=== PATIENT | female | born 1955 | race Caucasian/White ===

== ENCOUNTER 2018-07-01 08:03 | Inpatient (IN) ==
[2018-06-27 17:14] LABS: Appearance,Urine CLEAR; Bilirubin,Urine NEG (NEG); Color,Urine STRAW; Glucose,Urine (UA) NEGATIVE (NEG); Leukocyte Esterase,Urine NEG /uL (NEG); Protein,Urine NEG (NEG); Specific Gravity,Urine 1.011 (1.000-1.035); Urine Blood NEG mg/dL (<0.03)
[2018-06-27 18:24] LABS: Basophils # (Auto) 0 K/mcL (0.0-0.3); Basophils % (Auto) 0.5 % (0.0-2.0); Eosinophils # (Auto) 0.1 K/mcL (0.0-0.7); Eosinophils % (Auto) 1.4 % (0.0-7.0); Lymphocytes # (Auto) 1.7 K/mcL (1.5-4.8); Lymphocytes % (Auto) 24.6 % (15.5-49.0); Mean Cell Volume 92.4 fL (80.0-100.0); Mean Corpuscular HGB Conc 32.9 g/dL (31.0-36.0); Monocytes # (Auto) 0.5 K/mcL (0.1-0.9); Monocytes % (Auto) 7.5 % (1.0-12.0); Platelet Count 268 K/mcL (140-440); Red Cell Distribution Width 12.9 % (11.5-14.5)
[2018-06-27 18:35] LABS: Blood Urea Nitrogen 19 mg/dl (8-23)
[~2018-07-01 08:03] MED LIST: 0.9 % SODIUM CHLORIDE 9 ML, KETOROLAC 30 MG, ROPIVACAINE HCL/PF 49.5 ML, EPINEPHrine 0.... IJ SCH; CELECOXIB 200 MG CAPSULE PO SCH; PREGABALIN 75 MG CAPSULE PO SCH; SCOPOLAMINE 1 PATCH PATCH TOPICAL ONE; ceFAZolin 2 GM in DEXTROSE 5% IN WATER 50 ML IV SCH; oxyCODONE 10 MG TAB.ER.12H PO SCH
[2018-07-01] MEDS ORDERED: ePHEDrine 50 MG/ML AMPUL IV ONE (10:30)
[2018-07-01] MEDS ORDERED: TRANEXAMIC ACID 1,000 MG/10 ML VIAL IV ONE (10:30)
[2018-07-01] MEDS ORDERED: DEXAMETHASONE 4 MG/ML VIAL IV ONE (10:30)
[2018-07-01] MEDS ORDERED: ONDANSETRON 4 MG/2 ML VIAL IV ONE (10:30)
[2018-07-01] MEDS ORDERED: MIDAZOLAM 2 MG/2 ML VIAL IV ONE (10:30)
[2018-07-01] MEDS ORDERED: LIDOCAINE HCL/PF 100 MG/5 ML SYRINGE IV ONE (10:30)
[2018-07-01] MEDS ORDERED: ROPIVACAINE HCL/PF 20 ML VIAL IJ ONE (10:30)
[2018-07-01] MEDS ORDERED: PROPOFOL 200 MG/20 ML VIAL IV ONE (10:30)
[2018-07-01] MEDS ORDERED: GENTAMICIN SULFATE 800 MG/20 ML VIAL IR ONE (10:58)
[2018-07-01] MEDS ORDERED: BENZOCAINE/MENTHOL 1 LOZENGE PO PRN (12:10)
[2018-07-01] MEDS ORDERED: MAGNESIUM HYDROXIDE 30 ML ORAL.SUSP PO PRN (12:10)
[2018-07-01] MEDS ORDERED: BISACODYL 10 MG SUPP.RECT PR PRN (12:10)
[2018-07-01] MEDS ORDERED: ONDANSETRON 4 MG/2 ML VIAL IV PRN ×2 (12:10→12:30)
[2018-07-01] MEDS ORDERED: TRANEXAMIC ACID 1,000 MG/10 ML VIAL IV SCH (12:10)
[2018-07-01] MEDS ORDERED: FLEETS ADULT ENEMA PR PRN (12:10)
[2018-07-01] MEDS ORDERED: ONDANSETRON 4 MG ODT TABLET SL PRN (12:10)
--- NOTE | 2018-07-01 12:10 | Brief Operative Note ---
Date of procedure: 07/01/18 Pre-op diagnosis: right knee osteoarthritis Post-op diagnosis: same Procedure: right total knee arthroplasty Grafts/Implants: Yes Anesthesia: spinal Complications: none Surgeon: Guille Munguia Reimbursement Manager: La Aguilar Estimated blood loss (cc): 150 Tourniquet Time (Minutes): 53 Specimens Removed/Pathology: none sent Condition: stable Disposition: PACU
[2018-07-01] MEDS ORDERED: Budesonide/Formoterol Fumarate [Symbicort 160-4.5 MCG] Inhaler INH PRN (12:12)
[2018-07-01] MEDS ORDERED: IPRATROPIUM/ALBUTEROL 3 ML AMPUL.NEB NEB PRN (12:30)
[2018-07-01] MEDS ORDERED: ACETAMINOPHEN 1,000 MG/100 ML BOTTLE IV ONE (12:30)
[2018-07-01] MEDS ORDERED: LACTATED RINGERS 1,000 ML IV SCH (12:30)
[2018-07-01] MEDS ORDERED: MEPERIDINE 25 MG/ML SYRINGE IV PRN (12:30)
[2018-07-01] MEDS ORDERED: METHOCARBAMOL 1,000 MG/10 ML VIAL IV PRN (12:30)
[2018-07-01] MEDS ORDERED: fentaNYL 100 MCG/2 ML VIAL IV PRN (12:30)
--- NOTE | 2018-07-01 12:36 | Operative Note ---
DATE OF OPERATION: 07/01/2018 PREOPERATIVE DIAGNOSIS: Degenerative joint disease, right knee. POSTOPERATIVE DIAGNOSIS: Degenerative joint disease, right knee. PROCEDURE: Right total knee arthroplasty. SURGEON: Emma Munguia M.D. STILL PUMP OPERATOR SURGEON: La Aguilar PA-C. ANESTHESIA: Spinal with LMA assist. ESTIMATED BLOOD LOSS: 150 mL. COMPLICATIONS: None noted. SPECIMENS REMOVED: None. DRAINS: None. TOURNIQUET TIME: 53 minutes at 300 mmHg. IMPLANTS: DePuy Attune tibial insert fixed bearing posterior stabilized size 6, 7 mm AOX; DePuy Attune patella medialized dome 38 mm cemented AOX; DePuy Attune tibial base fixed bearing size 5, cemented; DePuy Attune femoral posterior stabilized size 6 narrow right, cemented. INDICATIONS: The patient has had a long-standing history of worsening pain in the knee that has failed conservative treatment. Radiographs have confirmed advanced degenerative joint disease. After a long discussion about treatment options, the patient elected to proceed with a knee arthroplasty. The risks and benefits were discussed with the patient in detail including, but not limited to, the risks of anesthesia, problems with the heart or lungs related to anesthesia, infection, compromise or injury to the nerves and blood vessels, deep venous thrombosis, pulmonary embolism, pneumonia, continued pain after surgery, worsening pain or symptoms after surgery, swelling, loss of motion, instability, leg length discrepancy, and need for repeat surgery. DESCRIPTION OF PROCEDURE: The patient was seen in the pre-anesthesia waiting room where all questions were answered and the correct side and site were identified and marked. The patient was transferred to the operating room and administered the anesthetic and given pre-operative antibiotics. A time-out was then called. The extremity was prepped and draped, exsanguinated, and the tourniquet was inflated to 300 mmHg. A midline skin incision was then made with a standard medial parapatellar arthrotomy. Debridement of the menisci, ACL, and PCL was performed followed by balancing releases in the medial lateral plane. We then established intramedullary access to both the femur and tibia in a standard fashion. The femoral guide eddie was initially placed with the distal femoral guide, pinned into place, and the distal femoral cut was performed and checked with a flat plate. We then turned our attention to the tibia. The intramedullary guide was placed with the proximal tibial cutting block. The block was appropriately positioned off the affected side, varus and valgus was checked with the extra-medullary guide, and the block was pinned into place. The proximal tibial cut was performed and the tibia was prepared for the tibial implant with appropriate rotation. The tibia, femur, and posterior compartment were debrided of osteophytes, loose bodies, and meniscal fragments We then used the gap balancing technique to balance extension with the first two cuts and good balancing was obtained with a 10 millimeter gap block. We turned our attention back to the femur and used the referencing block and implant to size appropriately. Using the gap balancing technique for the flexion space we set our rotation of the femur off the tibial cut. Anesthesia gave the patient 1 gram of Tranexamic Acid via an intravenous route. We placed the 4 in 1 cutting block and made anterior, posterior, and chamfer cuts. Box plasty cuts were then made in a standard fashion for the posterior stabilized prosthesis. We then completed osteophyte release and posterior capsule release from the posterior compartment. Trials were placed and we chose the polyethylene insert thickness that provided the best stability in all planes. With the trials in place, we did a measured resection for a resurfacing patella. We sized the patella and placed the patella trial and performed a lateral facetectomy with the saw and rongeur. Good tracking was obtained. We removed all trials, irrigated and dried all cut surfaces. We cemented the components into place including tibia, femur and patella. We placed a trial liner and held the knee in full extension with the patella compressed while the cement cured. We then removed all excess cement and placed the final polyethylene tibiofemoral component. Irrigation with 3 liters of antibiotic saline was then performed using jet-lavage. We let the tourniquet down and coagulated bleeding vessels. We injected a 100 cubic centimeter volume including Ropivacaine 49.25 cubic centimeters at 5 milligrams per cubic centimeter, Ketorolac 30 milligrams, and Epinephrine 0.5 milligrams into 100 cubic centimeters volume of normal saline. We closed the retinaculum with #2 Stratafix and 0 Vicryl. We closed the subcutaneous tissue and skin in layers out to gael in the skin. A sterile pressure dressing was applied. All needle and sponge counts were correct. The patient was transferred to the recovery room in stable condition. FREDDIE:federico Job ID: [id number] Doc ID: [id number] Emma Munguia MD
--- NOTE | 2018-07-01 12:55 | XRay Report ---
CLINICAL INFORMATION: Postsurgical follow-up TECHNIQUE: AP and crosstable lateral right knee COMPARISON: None. FINDINGS: Status post right total knee arthroplasty. Femoral and tibial components are in anatomic positions. There is postsurgical soft tissue and intra-articular gas. IMPRESSION: Left total knee arthroplasty Interpreted and Authenticated by: Guille Johns 07/01/18
[2018-07-01] MEDS: 0.9 % SODIUM CHLORIDE 1,000 ML IV SCH ×2 (15:19→22:48)
[2018-07-01] MEDS: 0.9 % SODIUM CHLORIDE 10 ML SYRINGE IV SCH ×2 (15:19→20:32)
[2018-07-01] MEDS: KETOROLAC 15 MG/ML VIAL IV SCH (18:43)
[2018-07-01] MEDS: ceFAZolin 1 GM VIAL IV SCH (18:43)
[2018-07-01] MEDS: ASPIRIN 325 MG ENTERIC COATED TABLET PO SCH (20:23)
[2018-07-01] MEDS: VERAPAMIL 120 MG TAB.XL.24H PO SCH (20:23)
[2018-07-01] MEDS: VERAPAMIL 180 MG TAB.XL.24H PO SCH (20:23)
[2018-07-01] MEDS: SENNOSIDES 1 TABLET PO SCH (20:23)
[2018-07-01] MEDS: HYDROcodone/APAP 10/325MG TABLET PO PRN (20:24)
[2018-07-01] MEDS: ATORVASTATIN 20 MG TABLET PO SCH (20:24)
[2018-07-01] MEDS: DOCUSATE SODIUM 100 MG CAPSULE PO SCH (20:24)
[2018-07-01] MEDS: SERTRALINE 50 MG TABLET PO SCH (20:24)
[2018-07-02] MEDS: ceFAZolin 1 GM VIAL IV SCH (00:46)
[2018-07-02] MEDS: KETOROLAC 15 MG/ML VIAL IV SCH ×5 (00:46→23:55)
[2018-07-02] MEDS: HYDROcodone/APAP 10/325MG TABLET PO PRN ×7 (01:13→23:56)
[2018-07-02] MEDS: 0.9 % SODIUM CHLORIDE 10 ML SYRINGE IV SCH ×2 (04:56→13:26)
--- NOTE | 2018-07-02 07:25 | Orthopedic Progress Note ---
Subjective Patient information: Note initiated : 07/02/18 at 7:22 am Service Date, if different from initiated Date: [] Patient: Lina Gamboa 63 y/o F admitted on 07/01/18 for Right Total Knee Arthroplasty. Chief Complaint: [POD #1 s/p right TKA Doing well overall, denies pain in knee. Upon bedside exam, exquisitely tender medially along the saphenous vein. Denies calf pain at rest, SOB, CP, numbness or tingling. No prior history of DVT.] Objective Vital signs: Vital Signs Temp Pulse Resp BP Pulse Ox 07/02/18 02:35 98.0 F 71 20 102/61 94 07/02/18 00:39 98.4 F 74 20 99/57 91 07/01/18 19:08 98.4 F 80 20 101/63 92 07/01/18 16:12 98.5 F 78 16 136/87 100 07/01/18 15:17 76 115/68 93 07/01/18 15:02 84 116/63 97 07/01/18 14:47 71 106/66 96 07/01/18 14:32 71 117/70 96 07/01/18 14:17 70 113/68 96 07/01/18 14:02 72 116/69 96 07/01/18 13:47 72 112/61 96 07/01/18 13:32 71 113/69 97 07/01/18 13:17 72 121/71 97 07/01/18 13:02 72 131/76 95 07/01/18 13:00 96 07/01/18 12:55 98.1 F 68 12 142/71 97 07/01/18 12:45 98.0 F 75 18 111/73 100 07/01/18 12:30 97.6 F 72 14 135/62 100 07/01/18 12:25 74 15 126/59 100 07/01/18 12:20 75 16 122/60 100 07/01/18 12:15 97.6 F 78 18 122/60 100 07/01/18 08:10 97.8 F 75 16 139/81 97 Intake and Output 07/01/18 07/02/18 07/02/18 21:59 05:59 13:59 Intake Total 1950 1200 Output Total 175 1400 Balance 1775 -200 Intake: IV 1000 Sodium Chloride 0.9% 1,000 ml @ 1000 125 mls/hr IV .Q8H REUBEN Rx#: [id number] Oral 1950 200 Output: Urine Catheter Amount 700 Straight 700 Void Amount 175 700 Other: Meal Dinner Percent of Meal Consumed 100% Feeding Ability Independent Urine Appearance Clear Straight Clear Urine Color Bright Yellow Straight Bright Yellow Urine Odor Normal # Voids 1 Weight 242 lb Intake & Output: Intake & Output 07/01/18 07/02/18 07/02/18 21:59 05:59 13:59 Intake Total 1950 1200 Output Total 175 1400 Balance 1775 -200 Weight 242 lb Intake: IV 1000 Sodium Chloride 0.9% 1,000 ml @ 1000 125 mls/hr IV .Q8H REUBEN Rx#: [id number] Oral 1950 200 Output: Urine Catheter Amount 700 Straight 700 Void Amount 175 700 Other: Meal Dinner Percent of Meal Consumed 100% Feeding Ability Independent Urine Appearance Clear Straight Clear Urine Color Bright Yellow Straight Bright Yellow Urine Odor Normal # Voids 1 Incision: Yes healing, No draining, No red, No swollen, No inflamed, Yes clean and dry Incision clean and dry: Yes Dressing: Yes clean, Yes dry, Yes intact Weight bearing status: as tolerated Neurological exam IM: Yes alert, Yes oriented X3, Yes motor sensory intact, Yes neurovascular intact Extremities exam IM: Yes calf tenderness, Yes normal capillary refill, No Emanuel's sign, Yes Foot pink and warm, Yes neurovascular intact - Periperhal Pulses Peripheral pulses: 2+: dorsalis pedis (L), dorsalis pedis (R), posterior tibialis (L), posterior tibialis (R) - Labs CBC & BMP: 07/02/18 05:10 06/27/18 16:16 Labs: Orthopedic Labs 06/27/18 16:15 PT 13.3 INR 1.0 07/02/18 06/27/18 05:10 16:15 Hgb 10.1 L 13.4 Hct 30.7 L 40.6 Assessment and Plan (1) Knee osteoarthritis POD #1 s/p right TKA: -incision drained BRB overnight and had to be reinforced several times. This can be normal post op. Will continue to monitor and change PRN -TTP along medial calf, concern for DVT. US ordered. Will await results -WBAT -PT -pain control -d/c planning: possible SNF as cannot assist. Awaiting case management assessment Status: Acute
[2018-07-02] MEDS: PANTOPRAZOLE 40 MG TABLET PO SCH (08:01)
[2018-07-02] MEDS: POTASSIUM CHLORIDE 10 MEQ TABLET PO SCH (08:01)
--- NOTE | 2018-07-02 08:33 | Ultrasound Report ---
CLINICAL INFORMATION: Right calf pain. Previous right knee replacement TECHNIQUE: Grayscale and color flow Doppler spectral imaging COMPARISON: None. FINDINGS: Negative right lower extremity deep venous ultrasound. Negative right common femoral vein, superficial femoral vein, popliteal vein. Negative posterior tibial veins. Peroneal veins are not well visualized. Greater saphenous vein is negative. IMPRESSION: 1. Somewhat limited evaluation. Peroneal veins are poorly visualized 2. Otherwise negative right lower extremity deep venous ultrasound Interpreted and Authenticated by: Guille Johns 07/02/18
[2018-07-02] MEDS: POLYETHYLENE GLYCOL 3350 17 GM PACKET PO PRN (09:44)
[2018-07-02] MEDS: VENLAFAXINE 150 MG CAP.XL.24H PO SCH (10:14)
[2018-07-02] MEDS: DOCUSATE SODIUM 100 MG CAPSULE PO SCH ×2 (10:16→20:09)
[2018-07-02] MEDS: ASPIRIN 325 MG ENTERIC COATED TABLET PO SCH ×2 (10:16→20:09)
[2018-07-02] MEDS: LOSARTAN 50 MG TABLET PO SCH (11:10)
[2018-07-02] MEDS: TORSEMIDE 10 MG TABLET PO SCH (11:10)
[2018-07-02] MEDS: SENNOSIDES 1 TABLET PO SCH (20:09)
[2018-07-02] MEDS: ATORVASTATIN 20 MG TABLET PO SCH (20:09)
[2018-07-02] MEDS: SERTRALINE 50 MG TABLET PO SCH (20:09)
[2018-07-02] MEDS: VERAPAMIL 180 MG TAB.XL.24H PO SCH (20:12)
[2018-07-02] MEDS: VERAPAMIL 120 MG TAB.XL.24H PO SCH (20:12)
[2018-07-03] MEDS: 0.9 % SODIUM CHLORIDE 10 ML SYRINGE IV SCH ×4 (00:26→22:52)
[2018-07-03] MEDS: KETOROLAC 15 MG/ML VIAL IV SCH ×2 (05:06→11:48)
[2018-07-03] MEDS: HYDROcodone/APAP 10/325MG TABLET PO PRN ×6 (05:06→21:17)
[2018-07-03] MEDS: PANTOPRAZOLE 40 MG TABLET PO SCH (06:57)
--- NOTE | 2018-07-03 07:10 | Orthopedic Progress Note ---
Subjective Patient information: Note initiated : 07/03/18 at 7:09 am Service Date, if different from initiated Date: [] Patient: Lina Gamboa 63 y/o F admitted on 07/01/18 for Right Total Knee Arthroplasty. Chief Complaint: [] Interval history: doing well. making progress Objective Vital signs: Vital Signs Temp Pulse Resp BP Pulse Ox 07/03/18 07:02 80 07/03/18 03:49 95 07/03/18 03:48 98.6 F 81 20 107/62 88 L 07/02/18 23:53 98.7 F 82 18 111/64 91 07/02/18 18:53 97.9 F 75 20 106/60 96 07/02/18 16:45 86 L 07/02/18 16:31 98.9 F 81 16 110/64 91 07/02/18 11:44 98.3 F 75 14 111/58 95 07/02/18 08:56 93 07/02/18 07:52 99.2 F H 78 12 95/59 89 L Intake and Output 07/02/18 07/03/18 07/03/18 21:59 05:59 13:59 Intake Total 800 640 Output Total 0 1425 Balance 800 -785 Intake: Oral 800 640 Output: Urine Catheter Amount 925 Straight 925 Void Amount 0 500 Other: Meal Dinner Percent of Meal Consumed 100% Urine Appearance Straight Clear Urine Color Bright Yellow Straight Bright Yellow Urine Odor Straight Normal Weight 245 lb Intake & Output: Intake & Output 07/02/18 07/03/18 07/03/18 21:59 05:59 13:59 Intake Total 800 640 Output Total 0 1425 Balance 800 -785 Weight 245 lb Intake: Oral 800 640 Output: Urine Catheter Amount 925 Straight 925 Void Amount 0 500 Other: Meal Dinner Percent of Meal Consumed 100% Urine Appearance Straight Clear Urine Color Bright Yellow Straight Bright Yellow Urine Odor Straight Normal Incision: Yes healing Incision clean and dry: Yes Dressing: Yes clean, Yes dry, Yes intact Weight bearing status: full Neurological exam IM: Yes alert, Yes oriented X3, Yes motor sensory intact, Yes neurovascular intact Extremities exam IM: No calf tenderness, Yes Foot pink and warm, Yes neurovascular intact - Labs CBC & BMP: 07/03/18 04:30 06/27/18 16:16 Labs: Orthopedic Labs 06/27/18 16:15 PT 13.3 INR 1.0 07/03/18 07/02/18 06/27/18 04:30 05:10 16:15 Hgb 9.7 L 10.1 L 13.4 Hct 29.4 L 30.7 L 40.6 Assessment and Plan (1) Knee osteoarthritis pod 2 s/p tka wbat pain control pt dvt prophylaxis d/c planning - home vs rehab Status: Acute
--- NOTE | 2018-07-03 07:11 | Discharge Summary ---
Ortho Discharge - TKA - Patient Instructions Diet: Regular Diet Activity: ambulate with assistive device, weight bearing as tolerated Total Knee Protocol: For Total Knee: Start ROM TAMRA with stationary bike or rocking chair. Work on gaining full extension of knee. Posterior dislocation precautions provided. Hip abductor strengthening and gait training instructions provided. Apply Cryocuff as instructed. Dressing Care: May shower in 2 days, Aquacel Ag - leave on for 5 days - Problem Maintenance (1) Knee osteoarthritis Status: Acute - Follow Up Plan Follow Up Appointments: La Aguilar PA-C [Physician Tape Editor] - 07/16/18 9:00 am Disposition: Xfer SNF Prognosis: Good Rehab Potential: Good I certify that the patient requires SNF services: Yes Overall status at discharge: patient is progressing back to baseline
[2018-07-03] MEDS: LOSARTAN 50 MG TABLET PO SCH (08:13)
[2018-07-03] MEDS: ASPIRIN 325 MG ENTERIC COATED TABLET PO SCH ×2 (08:13→21:16)
[2018-07-03] MEDS: POTASSIUM CHLORIDE 10 MEQ TABLET PO SCH (08:13)
[2018-07-03] MEDS: DOCUSATE SODIUM 100 MG CAPSULE PO SCH ×2 (08:13→21:17)
[2018-07-03] MEDS: VENLAFAXINE 150 MG CAP.XL.24H PO SCH (08:13)
[2018-07-03] MEDS: TORSEMIDE 10 MG TABLET PO SCH (08:14)
[2018-07-03] MEDS: METHOCARBAMOL 750 MG TABLET PO PRN (19:34)
[2018-07-03] MEDS: ATORVASTATIN 20 MG TABLET PO SCH (21:16)
[2018-07-03] MEDS: SENNOSIDES 1 TABLET PO SCH (21:16)
[2018-07-03] MEDS: SERTRALINE 50 MG TABLET PO SCH (21:16)
[2018-07-03] MEDS: VERAPAMIL 180 MG TAB.XL.24H PO SCH (21:20)
[2018-07-03] MEDS: VERAPAMIL 120 MG TAB.XL.24H PO SCH (21:20)
[2018-07-04] MEDS: HYDROcodone/APAP 10/325MG TABLET PO PRN ×3 (01:49→09:50)
[2018-07-04] MEDS: METHOCARBAMOL 750 MG TABLET PO PRN ×2 (04:44→10:30)
[2018-07-04] MEDS: 0.9 % SODIUM CHLORIDE 10 ML SYRINGE IV SCH (05:47)
--- NOTE | 2018-07-04 07:09 | Discharge Summary ---
Providers - Providers Patient information: Note initiated : 07/04/18 at 7:07 am Service Date, if different from initiated Date: [] Patient: Lina Gamboa 63 y/o F admitted on 07/01/18 for Right Total Knee Arthroplasty. Chief Complaint: [POD #3 s/p right TKA Doing better today. Pain better controlled. Denies numbness, tingling, CP, SOB, calf pain. ] Discharge date: 07/04/18 Hospitalization Hospital course: Patient was brought to OR on 07/01/18 for right TKA which went on without complication. She was transferred to the med surg floor for post op care. She stayed for a total of 3 nights and with d/c to SNF today for continued post op care. She will follow up in the office in 10-14 days for post op. Discharge diagnosis: knee osteoarthritis Exam - Exam Incision healing: Yes Incision draining: No Incision red: No Incision swollen: No Incision inflamed: No Clean and dry: Yes Weight bearing status: as tolerated Range of motion: full foot and ankle. DP/PT pulses 2+. NVI Ortho Discharge - TKA - Patient Instructions Diet: Regular Diet Activity: ambulate with assistive device, weight bearing as tolerated Total Knee Protocol: For Total Knee: Start ROM TAMRA with stationary bike or rocking chair. Work on gaining full extension of knee. Posterior dislocation precautions provided. Hip abductor strengthening and gait training instructions provided. Apply Cryocuff as instructed. Dressing Care: Aquacel Ag - leave on for 5 days Patient Education: Hydrocodone/Acetaminophen (By mouth), Aspirin (By mouth), Total Knee Replacement (DC) Additional Instructions: Discharge Instructions: Do the exercises at home that physical therapy gave you throughout the day. Weight bearing as tolerated. Wear comfortable clothing for physical therapy. You have the Aquacel Ag dressing, leave in place for 7 days then remove. If dressing becomes soiled (turns black), remove and use gauze 4x4 dressing and silvasorb ointment and change daily. Keep incision clean and dry. You may start showering on post op day #2. To avoid constipation while taking any narcotic pain medication, take an over the counter stool softener/laxative. Use your Cryocuff or ice packs as directed, on for 20 minutes at a time throughout the day. This and elevation will help with pain and swelling. Call your physician for fevers above 100.5 or pain not controlled by medication. Your prescriptions are with your discharge information. Some medications were electronically transmitted to your pharmacy of choice. Take Aspirin twice daily, for 30 days, as prescribed to prevent blood clots (see medication list). - Problem Maintenance (1) Knee osteoarthritis Status: Acute - Follow Up Plan Follow Up Appointments: La Aguilar PA-C [Physician Forger Helper] - 07/16/18 9:00 am Disposition: Xfer SNF Prognosis: Good Rehab Potential: Good I certify that the patient requires SNF services: Yes Overall status at discharge: patient is progressing back to baseline - Orders For Discharge Prescriptions: Aspirin [Ecotrin] 325 mg PO BID #28 tab.ec HYDROcodone/APAP 10/325MG [[place] 10-325Mg] 1 - 2 tab PO Q4H PRN #60 tab PRN Reason: Pain Additional Discharge Orders: OT Discharge Order Location: None Selected Physical Therapy at Discharge - TKA Location: None Selected Toilet Riser Discharge Order Location: None Selected Walker Location: None Selected Pending Studies Resuscitation Status Full Code Diet Regular Diet Start SatJul 01 1211 Hydrocodone Bitart/Acetaminophen ([place] 10/325mg) 0 tab PO Q4HP PRN PRN Reason: PAIN LEVEL 3-6 Last Admin: 07/04/18 05:50 Dose: 2 tab Documented by: Admin: 07/04/18 01:49 Dose: 2 tab Documented by: Admin: 07/03/18 21:17 Dose: 2 tab Documented by: Admin: 07/03/18 17:07 Dose: 2 tab Documented by: Admin: 07/03/18 14:51 Dose: 2 tab Documented by: Admin: 07/03/18 11:13 Dose: 2 tab Documented by: Admin: 07/03/18 07:10 Dose: 1 tab Documented by: Admin: 07/03/18 05:06 Dose: 1 tab Documented by: Admin: 07/02/18 23:56 Dose: 2 tab Documented by: Admin: 07/02/18 19:37 Dose: 2 tab Documented by: Admin: 07/02/18 17:30 Dose: 2 tab Documented by: [email or web address] Admin: 07/02/18 13:25 Dose: 2 tab Documented by: [email or web address] Admin: 07/02/18 09:44 Dose: 2 tab Documented by: Admin: 07/02/18 04:54 Dose: 2 tab Documented by: Admin: 07/02/18 01:13 Dose: 1 tab Documented by: Admin: 07/01/18 20:24 Dose: 1 tab Documented by: LELA Aspirin (Ecotrin) 325 mg PO BID [facility] Last Admin: 07/03/18 21:16 Dose: 325 mg Documented by: Admin: 07/03/18 08:13 Dose: 325 mg Documented by: Admin: 07/02/18 20:09 Dose: 325 mg Documented by: Admin: 07/02/18 10:16 Dose: 325 mg Documented by: JACKY Cosigned by: SHANTHI Admin: 07/01/18 20:23 Dose: 325 mg Documented by: LELA Atorvastatin Calcium (Lipitor) 10 mg PO [facility] Last Admin: 07/03/18 21:16 Dose: 10 mg Documented by: Admin: 07/02/18 20:09 Dose: 10 mg Documented by: Admin: 07/01/18 20:24 Dose: 10 mg Documented by: LELA Docusate Sodium (Colace) 100 mg PO BID [facility] Last Admin: 07/03/18 21:17 Dose: 100 mg Documented by: Admin: 07/03/18 08:13 Dose: 100 mg Documented by: Admin: 07/02/18 20:09 Dose: 100 mg Documented by: Admin: 07/02/18 10:16 Dose: 100 mg Documented by: JACKY Cosigned by: SHANTHI Admin: 07/01/18 20:24 Dose: 100 mg Documented by: LELA Losartan Potassium (Cozaar) 50 mg PO DAILY [facility] Last Admin: 07/03/18 08:13 Dose: 50 mg Documented by: Admin: 07/02/18 11:10 Dose: Not Given Documented by: [facility] Methocarbamol (Robaxin) 750 mg PO Q6HP PRN PRN Reason: Muscle Spasm Last Admin: 07/04/18 04:44 Dose: 750 mg Documented by: Admin: 07/03/18 19:34 Dose: 750 mg Documented by: LESLEE Morphine Sulfate (Morphine) 0 mg IV Q1HP PRN PRN Reason: PAIN LEVEL > 6 Last Admin: 07/03/18 13:16 Dose: 4 mg Documented by: Admin: 07/02/18 16:28 Dose: 2 mg Documented by: [facility] Admin: 07/02/18 14:21 Dose: 2 mg Documented by: Gio Admin: 07/02/18 11:38 Dose: 2 mg Documented by: JACKY Cosigned by: [facility]oprazole [facility]ix) [facility] Last Admin: 07/03/18 06:57 Dose: 40 mg Documented by: Admin: 07/02/18 08:01 Dose: 40 mg Documented by: JACKY Cosigned by: [facility] Polyethylene Glycol (Miralax) 17 gm PO DAILYP PRN PRN Reason: Constipation Last Admin: 07/02/18 09:44 Dose: 17 gm Documented by: [facility] Potassium [facility] (Kdur) [facility] Last Admin: 07/03/18 08:13 Dose: 10 meq Documented by: Admin: 07/02/18 08:01 Dose: 10 meq Documented by: JACKY Cosigned by: [facility] Senna (Senokot) 2 tab PO [facility] Last Admin: 07/03/18 21:16 Dose: 2 tab Documented by: Admin: 07/02/18 20:09 Dose: 2 tab Documented by: Admin: 07/01/18 20:23 Dose: 2 tab Documented by: LELA Sertraline HCl (Zoloft) 100 mg PO [facility] Last Admin: 07/03/18 21:16 Dose: 100 mg Documented by: Admin: 07/02/18 20:09 Dose: 100 mg Documented by: Admin: 07/01/18 20:24 Dose: 100 mg Documented by: LELA Sodium Chloride (Saline Flush) 10 ml IV Q8 [facility] Last Admin: 07/04/18 05:47 Dose: Not Given Documented by: Admin: 07/03/18 22:52 Dose: Not Given Documented by: Admin: 07/03/18 14:49 Dose: 10 ml Documented by: [email or web address] Admin: 07/03/18 05:08 Dose: 10 ml Documented by: Admin: 07/03/18 00:26 Dose: 10 ml Documented by: Admin: 07/02/18 13:26 Dose: 10 ml Documented by: [email or web address] Admin: 07/02/18 04:56 Dose: 10 ml Documented by: Admin: 07/01/18 20:32 Dose: Not Given Documented by: Admin: 07/01/18 15:19 Dose: Not Given Documented by: [email or web address] Torsemide (Demadex) 20 mg PO DAILY [facility] Last Admin: 07/03/18 08:14 Dose: 20 mg Documented by: Admin: 07/02/18 11:10 Dose: Not Given Documented by: [email or web address] Venlafaxine HCl (Effexor Xr) 300 mg PO DAILY [facility] Last Admin: 07/03/18 08:13 Dose: 300 mg Documented by: [email or web address] Admin: 07/02/18 10:14 Dose: 300 mg Documented by: JACKY Cosigned by: SHANTHI Verapamil HCl (Calan Sr) 180 mg PO HS [facility] Last Admin: 07/03/18 21:20 Dose: Not Given Documented by: Admin: 07/02/18 20:12 Dose: Not Given Documented by: Admin: 07/01/18 20:23 Dose: 180 mg Documented by: LELA Verapamil HCl (Calan Sr) 120 mg PO HS [facility] Last Admin: 07/03/18 21:20 Dose: Not Given Documented by: Admin: 07/02/18 20:12 Dose: Not Given Documented by: Admin: 07/01/18 20:23 Dose: 120 mg Documented by: LELA Shift Summary 07/04/18 03:30 Shift Summary by Heather Magallon a/o x4, brp with fww and sba, perez wrap dressing to rt knee c/d/i, has use cryotherapy and cpm this shift, has received norco 10 x2 tabs and robaxin for pain control with good results, uses cpap at hs and o2 at 2l via nc, voids well, no bm this shift, s/l to left av,pt has already walked her and the plan is to be dc'd to advance care today if bed available Initialized on 07/04/18 03:30 - END OF NOTE
[2018-07-04] MEDS: POTASSIUM CHLORIDE 10 MEQ TABLET PO SCH (07:19)
[2018-07-04] MEDS: POLYETHYLENE GLYCOL 3350 17 GM PACKET PO PRN (07:19)
[2018-07-04] MEDS: PANTOPRAZOLE 40 MG TABLET PO SCH (07:20)
[2018-07-04] MEDS: TORSEMIDE 10 MG TABLET PO SCH (08:39)
[2018-07-04] MEDS: LOSARTAN 50 MG TABLET PO SCH (08:40)
[2018-07-04] MEDS: VENLAFAXINE 150 MG CAP.XL.24H PO SCH (08:40)
[2018-07-04] MEDS: ASPIRIN 325 MG ENTERIC COATED TABLET PO SCH (08:40)
[2018-07-04] MEDS: DOCUSATE SODIUM 100 MG CAPSULE PO SCH (08:41)
== END 2018-07-04 11:05 | DRG 470 ==
LOC: MEDSUR 08:03
PROVIDERS: ADMIT Orthopaedic Surgery Sports Medicine; ATTEND Orthopaedic Surgery Sports Medicine

== ENCOUNTER 2019-02-17 04:59 | Inpatient (IN) ==
[2019-02-09 16:12] LABS: Appearance,Urine HAZY; Bacteria,Urine 0 /hpf (0); Bilirubin,Urine NEG (NEG); Color,Urine YELLOW; Culture Indicated,Urine NO; Glucose,Urine (UA) NEGATIVE (NEG); Ketones,Urine NEG (NEG); Leukocyte Esterase,Urine 75 /uL (NEG); Mucus,Urine FEW /hpf (0); Nitrate,Urine NEG (NEG); Protein,Urine 30 mg/dL (NEG); Specific Gravity,Urine 1.031 (1.000-1.035); Urine Blood NEG mg/dL (<0.03); Urine RBC 4 /hpf (0-1); Urine Squamous Epithelial Cell 44 /hpf (0-4); Urine Transitional Epi Cells 1 /hpf (0-2); Urine WBC 20 /hpf (0-4); Urobilinogen,Urine NEG (NEG)
[2019-02-09 20:01] LABS: Prothrombin Time 12.7 sec (11.9-14.5)
[2019-02-09 20:07] LABS: Basophils # (Auto) 0 K/mcL (0.0-0.3); Basophils % (Auto) 0.5 % (0.0-2.0); Eosinophils # (Auto) 0.1 K/mcL (0.0-0.7); Eosinophils % (Auto) 1.3 % (0.0-7.0); Granulocytes % (Auto) 69.7 % (38.0-78.0); Hematocrit 40.4 % (36.0-48.0); Hemoglobin 13.5 g/dL (12.0-15.0); Lymphocytes # (Auto) 1.2 K/mcL (1.5-4.8); Lymphocytes % (Auto) 20.7 % (15.5-49.0); Mean Cell Volume 87.2 fL (80.0-100.0); Mean Corpuscular HGB Conc 33.5 g/dL (31.0-36.0); Mean Platelet Volume 7.8 fL (7.4-10.4); Monocytes # (Auto) 0.4 K/mcL (0.1-0.9); Monocytes % (Auto) 7.8 % (1.0-12.0); Platelet Count 230 K/mcL (140-440); RBC 4.64 M/mcL (4.00-5.20); Red Cell Distribution Width 13.2 % (11.5-14.5); WBC 5.7 K/mcL (4.5-11.0)
[2019-02-09 20:20] LABS: Blood Urea Nitrogen 16 mg/dl (8-23); Calcium 9.3 mg/dl (8.6-10.4); Carbon Dioxide 26 mmol/L (22-30); Chloride 101 mmol/L (96-108); Glomerular Filtration Rate 96; Glucose 112 mg/dL (70-105)
[2019-02-17] MEDS ORDERED: SCOPOLAMINE 1 PATCH PATCH TOPICAL ONE (05:00)
[2019-02-17] MEDS ORDERED: IPRATROPIUM/ALBUTEROL 3 ML AMPUL.NEB NEB PRN ×2 (05:00→08:41)
[2019-02-17] MEDS ORDERED: oxyCODONE 10 MG TAB.ER.12H PO SCH (06:00)
[2019-02-17] MEDS ORDERED: ceFAZolin 2 GM in DEXTROSE 5% IN WATER 50 ML IV SCH (06:00)
[2019-02-17] MEDS ORDERED: 0.9 % SODIUM CHLORIDE 9 ML, KETOROLAC 30 MG, ROPIVACAINE HCL/PF 49.5 ML, EPINEPHrine 0.... IJ SCH (06:00)
[2019-02-17] MEDS ORDERED: GABAPENTIN 300 MG CAPSULE PO SCH ×2 (06:00→21:00)
[2019-02-17] MEDS ORDERED: CELECOXIB 200 MG CAPSULE PO SCH (06:00)
[2019-02-17] MEDS ORDERED: ePHEDrine 50 MG/ML AMPUL IV ONE (07:40)
[2019-02-17] MEDS ORDERED: PHENYLEPHRINE 10 MG/ML VIAL IV ONE (07:40)
[2019-02-17] MEDS ORDERED: TRANEXAMIC ACID 1,000 MG/10 ML VIAL IV ONE (07:40)
[2019-02-17] MEDS ORDERED: KETAMINE 100 MG/ML ML IV ONE (07:40)
[2019-02-17] MEDS ORDERED: GLYCOPYRROLATE 0.2 MG/ML VIAL IV ONE (07:40)
[2019-02-17] MEDS ORDERED: diphenhydrAMINE 50 MG/ML VIAL IV ONE (07:40)
[2019-02-17] MEDS ORDERED: PROPOFOL 200 MG/20 ML VIAL IV ONE (07:40)
[2019-02-17] MEDS ORDERED: DEXAMETHASONE 10 MG/ML VIAL IV ONE (07:40)
[2019-02-17] MEDS ORDERED: LIDOCAINE HCL/PF 100 MG/5 ML SYRINGE IV ONE (07:40)
[2019-02-17] MEDS ORDERED: ROPIVACAINE HCL/PF 20 ML VIAL IJ ONE (07:40)
[2019-02-17] MEDS ORDERED: ONDANSETRON 4 MG/2 ML VIAL IV ONE (07:40)
[2019-02-17] MEDS ORDERED: GENTAMICIN SULFATE 800 MG/20 ML VIAL IR ONE (08:09)
[2019-02-17] MEDS ORDERED: METHOCARBAMOL 1,000 MG/10 ML VIAL IV PRN (08:41)
[2019-02-17] MEDS ORDERED: BENZOCAINE/MENTHOL 1 LOZENGE PO PRN ×2 (08:41→09:10)
[2019-02-17] MEDS ORDERED: NALOXONE HCL 0.4 MG/ML VIAL IV PRN (08:41)
[2019-02-17] MEDS ORDERED: FLUMAZENIL 0.1 MG/ML ML IV PRN (08:41)
[2019-02-17] MEDS ORDERED: LACTATED RINGERS 250 ML IV PRN (08:41)
[2019-02-17] MEDS ORDERED: fentaNYL 100 MCG/2 ML VIAL IV PRN (08:41)
[2019-02-17] MEDS ORDERED: ONDANSETRON 4 MG/2 ML VIAL IV PRN ×2 (08:41→09:10)
[2019-02-17] MEDS ORDERED: ACETAMINOPHEN 1,000 MG/100 ML BOTTLE IV ONE (08:41)
[2019-02-17] MEDS ORDERED: METOPROLOL TARTRATE 5 MG/5 ML VIAL IV PRN (08:41)
[2019-02-17] MEDS ORDERED: LABETALOL 5 MG/ML ML IV PRN (08:41)
[2019-02-17] MEDS ORDERED: LACTATED RINGERS 1,000 ML IV SCH (08:45)
--- NOTE | 2019-02-17 09:09 | Brief Operative Note ---
Date of procedure: 02/17/19 Pre-op diagnosis: left knee osteoarthritis Post-op diagnosis: same Procedure: left total knee arthroplasty Grafts/Implants: Yes Anesthesia: spinal Complications: none Surgeon: Guille Munguia Shoe Stamper: La Aguilar Estimated blood loss (cc): 150 Tourniquet Time (Minutes): 55 Specimens Removed/Pathology: none sent Condition: stable
[2019-02-17] MEDS ORDERED: POLYETHYLENE GLYCOL 3350 17 GM PACKET PO PRN (09:10)
[2019-02-17] MEDS ORDERED: FLEETS ADULT ENEMA PR PRN (09:10)
[2019-02-17] MEDS ORDERED: METHOCARBAMOL 750 MG TABLET PO PRN ×2 (09:10→09:13)
[2019-02-17] MEDS ORDERED: MAGNESIUM HYDROXIDE 30 ML ORAL.SUSP PO PRN (09:10)
[2019-02-17] MEDS ORDERED: TRANEXAMIC ACID 1,000 MG/10 ML VIAL IV SCH (09:10)
[2019-02-17] MEDS ORDERED: ONDANSETRON 4 MG ODT TABLET SL PRN (09:10)
[2019-02-17] MEDS ORDERED: BISACODYL 10 MG SUPP.RECT PR PRN (09:10)
--- NOTE | 2019-02-17 09:10 | Discharge Summary ---
Ortho Discharge - TKA - Patient Instructions Diet: Regular Diet Activity: ambulate with assistive device, weight bearing as tolerated Total Knee Protocol: For Total Knee: Start ROM TAMRA with stationary bike or rocking chair. Work on gaining full extension of knee. Posterior dislocation precautions provided. Hip abductor strengthening and gait training instructions provided. Apply Cryocuff as instructed. Dressing Care: May shower in 2 days, Aquacel Ag - leave on for 5 days - Follow Up Plan Follow Up Appointments: La Aguilar PA-C [Physician Assistant Front Office Manager] - 03/02/19 1:00 pm Disposition: Home, Self-Care Prognosis: Good Rehab Potential: Good I certify that the patient requires SNF services: No Overall status at discharge: patient is progressing back to baseline
[2019-02-17] MEDS ORDERED: Budesonide/Formoterol Fumarate [Symbicort 160-4.5 MCG] Inhaler INH PRN (09:13)
--- NOTE | 2019-02-17 10:25 | XRay Report ---
CLINICAL INFORMATION: Post-Op Total Knee COMPARISON: None. FINDINGS: Total knee prostheses is anatomically aligned. No osseous abnormalities. Periarticular soft tissue swelling seen as expected. IMPRESSION: Negative Interpreted and Authenticated by: Guille Bell 02/17/19
--- NOTE | 2019-02-17 11:21 | Operative Note ---
DATE OF OPERATION: 02/17/2019 PREOPERATIVE DIAGNOSIS: Degenerative joint disease, left knee. POSTOPERATIVE DIAGNOSIS: Degenerative joint disease, left knee. PROCEDURE PERFORMED: Left total knee arthroplasty. SURGEON: Emma Munguia M.D. [employer] SURGEON: La Aguilar PA-C. The PA's assistance was required for the safe and efficient completion of the entire case. This provider's expertise and technical skill were required throughout the case. The PA assisted with preoperative coordination, intraoperative retraction, wound closure, dressing and splint application, as well as postoperative documentation and care coordination. ANESTHESIA: Spinal with LMA assist. ESTIMATED BLOOD LOSS: 150 mL. COMPLICATIONS: None noted. SPECIMENS REMOVED: None. DRAINS: None. TOURNIQUET TIME: 55 minutes at 300 mmHg. IMPLANTS: DePuy Attune tibial base fixed bearing size 5, cemented; DePuy Attune femoral posterior stabilized size 6 left, narrow; DePuy Attune tibial insert fixed bearing posterior stabilized size 6, 10 mm AOX; DePuy Attune patella medialized dome 38 mm cemented AOX; DePuy CMW2 bone cement 20 grams x5. INDICATIONS: The patient has had a long-standing history of worsening pain in the knee that has failed conservative treatment. Radiographs have confirmed advanced degenerative joint disease. After a long discussion about treatment options, the patient elected to proceed with a knee arthroplasty. The risks and benefits were discussed with the patient in detail including, but not limited to, the risks of anesthesia, problems with the heart or lungs related to anesthesia, infection, compromise or injury to the nerves and blood vessels, deep venous thrombosis, pulmonary embolism, pneumonia, continued pain after surgery, worsening pain or symptoms after surgery, swelling, loss of motion, instability, leg length discrepancy, and need for repeat surgery. DESCRIPTION OF PROCEDURE: The patient was seen in the pre-anesthesia waiting room where all questions were answered and the correct side and site were identified and marked. The patient was transferred to the operating room and administered the anesthetic and given pre-operative antibiotics. A time-out was then called. The extremity was prepped and draped, exsanguinated, and the tourniquet was inflated to 300 mmHg. A midline skin incision was then made with a standard medial parapatellar arthrotomy. Debridement of the menisci, ACL, and PCL was performed followed by balancing releases in the medial lateral plane. We then established intramedullary access to both the femur and tibia in a standard fashion. The femoral guide eddie was initially placed with the distal femoral guide, pinned into place, and the distal femoral cut was performed and checked with a flat plate. We then turned our attention to the tibia. The intramedullary guide was placed with the proximal tibial cutting block. The block was appropriately positioned off the affected side, varus and valgus was checked with the extra-medullary guide, and the block was pinned into place. The proximal tibial cut was performed and the tibia was prepared for the tibial implant with appropriate rotation. The tibia, femur, and posterior compartment were debrided of osteophytes, loose bodies, and meniscal fragments We then used the gap balancing technique to balance extension with the first two cuts and good balancing was obtained with a 10 millimeter gap block. We turned our attention back to the femur and used the referencing block and implant to size appropriately. Using the gap balancing technique for the flexion space we set our rotation of the femur off the tibial cut. Anesthesia gave the patient 1 gram of Tranexamic Acid via an intravenous route. We placed the 4 in 1 cutting block and made anterior, posterior, and chamfer cuts. Box plasty cuts were then made in a standard fashion for the posterior stabilized prosthesis. We then completed osteophyte release and posterior capsule release from the posterior compartment. Trials were placed and we chose the polyethylene insert thickness that provided the best stability in all planes. With the trials in place, we did a measured resection for a resurfacing patella. We sized the patella and placed the patella trial and performed a lateral facetectomy with the saw and rongeur. Good tracking was obtained. We removed all trials, irrigated and dried all cut surfaces. We cemented the components into place including tibia, femur and patella. We placed a trial liner and held the knee in full extension with the patella compressed while the cement cured. We then removed all excess cement and placed the final polyethylene tibiofemoral component. Irrigation with 3 liters of antibiotic saline was then performed using jet-lavage. We let the tourniquet down and coagulated bleeding vessels. We injected a 100 cubic centimeter volume including Ropivacaine 49.25 cubic centimeters at 5 milligrams per cubic centimeter, Ketorolac 30 milligrams, and Epinephrine 0.5 milligrams into 100 cubic centimeters volume of normal saline. We closed the retinaculum with #2 Stratafix and 0 Vicryl. We closed the subcutaneous tissue and skin in layers out to gael in the skin. A sterile pressure dressing was applied. All needle and sponge counts were correct. The patient was transferred to the recovery room in stable condition. FREDDIE:federico Job ID: [id number] Doc ID: [id number] Emma Munguia MD
[2019-02-17] MEDS: HYDROcodone/APAP 10/325MG TABLET PO PRN ×4 (13:48→22:14)
[2019-02-17] MEDS: KETOROLAC 15 MG/ML VIAL IV SCH ×2 (13:49→18:45)
[2019-02-17] MEDS: 0.9 % SODIUM CHLORIDE 1,000 ML IV SCH ×2 (15:48→18:27)
[2019-02-17] MEDS: 0.9 % SODIUM CHLORIDE 10 ML SYRINGE IV SCH ×2 (16:07→22:11)
[2019-02-17] MEDS: ceFAZolin 1 GM VIAL IV SCH (17:28)
[2019-02-17] MEDS ORDERED: SERTRALINE 50 MG TABLET PO SCH (21:00)
[2019-02-17] MEDS ORDERED: VERAPAMIL HCL 300 MG PO SCH (21:00)
[2019-02-17] MEDS ORDERED: SENNOSIDES 1 TABLET PO SCH (21:00)
[2019-02-17] MEDS ORDERED: SIMVASTATIN 20 MG TABLET PO SCH (21:00)
[2019-02-17] MEDS: DOCUSATE SODIUM 100 MG CAPSULE PO SCH (22:10)
[2019-02-17] MEDS: ASPIRIN 81 MG TAB.CHEW PO SCH (22:10)
[2019-02-18] MEDS: KETOROLAC 15 MG/ML VIAL IV SCH ×2 (00:30→05:41)
[2019-02-18] MEDS: ceFAZolin 1 GM VIAL IV SCH (00:32)
[2019-02-18] MEDS: 0.9 % SODIUM CHLORIDE 1,000 ML IV SCH ×2 (01:29→09:40)
[2019-02-18] MEDS: HYDROcodone/APAP 10/325MG TABLET PO PRN ×2 (04:45→11:54)
[2019-02-18] MEDS: 0.9 % SODIUM CHLORIDE 10 ML SYRINGE IV SCH (05:42)
[2019-02-18 07:02] LABS: Hematocrit 32.8 % (36.0-48.0)
[2019-02-18] MEDS ORDERED: PANTOPRAZOLE 40 MG TABLET PO SCH (07:30)
--- NOTE | 2019-02-18 07:53 | Orthopedic Progress Note ---
Subjective Patient information: Note initiated : 02/18/19 at 7:52 am Service Date, if different from initiated Date: [] Patient: Lina Gamboa 63 y/o F admitted on 02/17/19 for Left Total Knee Arthroplasty . Chief Complaint: [] Interval history: doing well. no complaints Objective Vital signs: Vital Signs Temp Pulse Resp BP BP Pulse Ox 02/18/19 04:41 97.9 F 72 16 107/60 91 02/17/19 23:19 98.2 F 67 16 101/60 91 02/17/19 19:50 98.4 F 76 20 113/63 91 02/17/19 13:40 97.5 F 72 18 106/65 93 02/17/19 12:40 79 18 99/61 93 02/17/19 12:10 67 18 107/62 93 02/17/19 11:55 68 18 117/63 94 02/17/19 11:40 72 18 112/67 93 02/17/19 11:25 74 16 118/70 92 02/17/19 11:10 97.4 F 66 16 116/66 94 02/17/19 10:19 97.0 F 71 16 139/78 92 02/17/19 10:06 97 F 72 9 L 150/76 93 02/17/19 09:50 97.0 F 72 16 116/63 93 02/17/19 09:45 72 14 115/63 92 02/17/19 09:40 71 15 121/68 94 02/17/19 09:35 72 11 L 121/64 88 L 02/17/19 09:34 98.0 F 71 11 L 122/68 92 Intake and Output 02/17/19 02/18/19 02/18/19 21:59 05:59 13:59 Intake Total 1850 1325 Output Total 1650 950 800 Balance 200 375 -800 Intake: IV 50 1000 Sodium Chloride 0.9% 1,000 ml @ 1000 125 mls/hr IV .Q8H REUBEN Rx#: [id number] Ancef 2 gm In Dextrose 5% in 50 Water 50 ml @ 100 mls/hr IV PREOP REUBEN Rx#:[id number] Oral 1800 325 Output: Void Amount 1650 950 800 Other: Urine Appearance Clear Clear Urine Color Bright Yellow Bright Yellow Urine Odor Normal Normal Weight 259 lb 3.2 oz Intake & Output: Intake & Output 02/17/19 02/18/19 02/18/19 21:59 05:59 13:59 Intake Total 1850 1325 Output Total 1650 950 800 Balance 200 375 -800 Weight 259 lb 3.2 oz Intake: IV 50 1000 Sodium Chloride 0.9% 1,000 ml @ 1000 125 mls/hr IV .Q8H REUBEN Rx#: [id number] Ancef 2 gm In Dextrose 5% in 50 Water 50 ml @ 100 mls/hr IV PREOP REUBEN Rx#:[id number] Oral 1800 325 Output: Void Amount 1650 950 800 Other: Urine Appearance Clear Clear Urine Color Bright Yellow Bright Yellow Urine Odor Normal Normal Incision: Yes healing Incision clean and dry: Yes Dressing: Yes clean, Yes dry, Yes intact Weight bearing status: full Neurological exam IM: Yes abnormal gait, Yes alert, Yes oriented X3, Yes motor sensory intact, Yes neurovascular intact Extremities exam IM: No calf tenderness, Yes Foot pink and warm, Yes neurovascular intact - Labs CBC & BMP: 02/18/19 05:17 02/09/19 12:32 Labs: Orthopedic Labs 02/09/19 12:32 PT 12.7 INR 1.0 02/18/19 02/09/19 05:17 12:32 Hgb 11.0 L 13.5 Hct 32.8 L 40.4 Assessment and Plan (1) Knee osteoarthritis pod 1 s/p tka pain control pt dvt prophylaxis d/c planning home when comfortable and passes pt Status: Acute
[2019-02-18] MEDS ORDERED: POTASSIUM CHLORIDE 10 MEQ TABLET PO SCH (08:00)
[2019-02-18] MEDS: ASPIRIN 81 MG TAB.CHEW PO SCH (08:43)
[2019-02-18] MEDS: DOCUSATE SODIUM 100 MG CAPSULE PO SCH (08:43)
[2019-02-18] MEDS ORDERED: TORSEMIDE 10 MG TABLET PO SCH (09:00)
[2019-02-18] MEDS ORDERED: TAMOXIFEN 10 MG TABLET PO SCH (09:00)
[2019-02-18] MEDS ORDERED: VENLAFAXINE 150 MG CAP.XL.24H PO SCH (09:00)
[2019-02-18] MEDS ORDERED: GABAPENTIN 300 MG CAPSULE PO SCH (09:00)
[2019-02-18] MEDS ORDERED: LOSARTAN 50 MG TABLET PO SCH (09:00)
== END 2019-02-18 13:12 | disposition home or self-care (01) | DRG 470 ==
LOC: MEDSUR 04:59
PROVIDERS: ADMIT Orthopaedic Surgery Sports Medicine; ATTEND Orthopaedic Surgery Sports Medicine